=== PATIENT | female | born 1995 | race Caucasian/White ===

== ENCOUNTER 2021-06-21 21:50 | Emergency (ER) | payer SELFPAY ==
[2021-06-21 22:01] VITALS: BP 125/69; PULSE 87; RESP 18; TEMP 37.3; O2SAT 99; BMI 25.8
--- NOTE | 2021-06-21 22:20 | ED_ITS ---
HPI - Back Pain/Injury General Chief Complaint: Back Pain/Injury Stated Complaint: BAD ABD PAIN BACK PAIN Time Seen by Provider: 06/21/21 22:07 Source: patient Limitations: no limitations History of Present Illness HPI Narrative: Patient is an otherwise healthy 25-year-old female here for evaluation of several days of lower abdominal pain, lower back pain, she took an ibuprofen yesterday. She did state that last week she felt a lump in her left inguinal/groin area that has since improved/resolved. No vomiting. Has not tried anything for symptoms prior to arrival. Related Data Home Medications Medication Instructions Recorded Confirmed naproxen sodium 220 mg capsule #0 10/20/16 02/26/21 (Aleve) Previous Rx's Medication Instructions Recorded albuterol sulfate 90 mcg/actuation 2 puff INHALATION Q6H PRN #18 g 02/26/21 aerosol inhaler (ProAir HFA) dextroamphetamine-amphetamine ER 10 mg PO DAILY #14 cap 02/26/21 10 mg 24hr capsule,extend release (Adderall XR) dextroamphetamine-amphetamine ER 20 mg PO DAILY #90 cap 02/26/21 20 mg 24hr capsule,extend release (Adderall XR) fluticasone 250 mcg-salmeterol 50 1 inh INHALATION BID #60 ea 02/26/21 mcg/dose blistr powdr for inhalation (Advair Diskus) Allergies Allergy/AdvReac Type Severity Reaction Status Date / Time No Known Drug Allergies Allergy Verified 06/21/21 22:05 Review of Systems Constitutional Comments: No fevers Cardiovascular Cardiovascular: Reports system reviewed and no additional complaints, except as documented Respiratory Respiratory: Reports system reviewed and no additional complaints, except as documented Gastrointestinal Gastrointestinal: Reports as per HPI Genitourinary Genitourinary: Reports system reviewed and no additional complaints, except as documented Musculoskeletal Musculoskeletal: Reports system reviewed and no additional complaints, except as documented Integumentary/Breasts Skin/Breast: Reports system reviewed and no additional complaints, except as documented Neurologic Neurologic: Reports system reviewed and no additional complaints, except as documented Hematologic/Lymphatic On Anticoagulants: No Patient History Medical History ADD (attention deficit disorder) Anxiety (~2019) Asthma (~2000) Depression (~2017) Family history of Shannan thyroiditis Fractures Headache (~2018) Hearing loss Kidney stones Seasonal allergic rhinitis Seizures (~2009) Surgical History (Updated 04/10/21 @ 22:41 by Leanna Jaffe) Anesthesia Disorder of kidney and ureter (~1994) Family History (Updated 04/10/21 @ 22:44 by Leanna Jaffe) Mother Hypertension Shannan's disease Grandfather Alzheimer's disease Grandmother Skin cancer Grandfather Diabetes mellitus Social History Smoking Status: Current some day smoker Smoking Status: Current some day smoker tobacco type: cigarettes alcohol intake frequency: a few times a week Substance Use Type: marijuana Exam Initial Vital Signs Initial Vital Signs: Vital Signs Temperature 99.1 F 06/21/21 22:01 Pulse Rate 87 06/21/21 22:01 Respiratory Rate 18 06/21/21 22:01 Blood Pressure 125/69 06/21/21 22:01 Pulse Oximetry 99 06/21/21 22:01 Const General: cooperative, healthy appearing and comfortable HENMT Head: normal to inspection and normocephalic Resp Effort & Inspection: normal respiratory effort Cardio Rate: regular rate GI Inspection: normal to inspection Palpation: soft, No firm, No guarding, No mass and No tender Skin General: no rashes or lesions noted Neuro General: patient alert, patient awake, patient oriented x3 and moves all extremities Extrem General: normal to inspection and capillary refill normal Psych Appearance: grossly normal and well kempt Course Orders Ordered: ED Orders 06/21/21 22:49 Chlamydia Gonorrhea PCR -URINE Stat Vital Signs Vital signs: Vital Signs - 8 hr 06/21/21 22:01 06/22/21 00:46 Temperature 99.1 F Pulse Rate 87 63 Respiratory Rate 18 16 Blood Pressure 125/69 117/56 L Pulse Oximetry 99 99 MDM - Back Pain/Injury Lab Data Attestation: I reviewed the patient's lab results. Labs: Lab Results 06/21/21 Range/Units 22:49 Ur Chlamydia DNA (PCR) Not detected N gonorrhoeae DNA (PCR) Not detected Point of Care Testing Test Results Negative Urine Dip Bedside Urine Glucose Negative Bedside Urine Bilirubin - Negative Bedside Urine Ketone - Negative Urine Specific [place] 1.030 Bedside Urine Occult Blood - Negative Bedside Urine pH 6.0 Bedside Urine Protein - Negative Bedside Urine Urobilinogen - Negative Bedside Urine Nitrite - Negative Bedside Urine Leukocytes - Negative Esterase MDM Narrative Medical decision making narrative: Well-appearing, benign exam, labs unremarkable, low suspicion for appendicitis/ovarian torsion/other intra- abdominal surgical issues. I feel that we can hold on further workup for now. Patient was provided reassurance and instructed that if her symptoms do not improve that she should contact her primary doctor for follow-up. She was given return precautions. She expressed understanding and agreement. Discharge Plan Departure Patient Disposition: Home Clinical Impression: Abdominal pain Instructions: DI for Abdominal Pain-Adult Activity Restrictions/Additional Instructions: Your workup here in the emergency department does not indicate any signs of an infection. Also have a low suspicion for other issues such as appendicitis. I recommend that you contact the health resource is coordinator at [phone]. This individual can help you establish a primary doctor. Return to the emergency department for any new symptoms Prescriptions: No Action naproxen sodium [Aleve] 220 MG capsule Qty: 0 RF: 0 dextroamphetamine-amphetamine [Adderall XR] 10 mg capsule,extended release 24 hr 10 mg PO DAILY Qty: 14 RF: 0 dextroamphetamine-amphetamine [Adderall XR] 20 mg capsule,extended release 24hr 20 mg PO DAILY Qty: 90 RF: 0 fluticasone propion-salmeterol [Advair Diskus] 250-50 mcg/dose blister with device 1 inh inhalation BID Qty: 60 RF: 1 albuterol sulfate [ProAir HFA] 90 mcg/actuation HFA aerosol inhaler 2 puff inhalation Q6H PRN (Reason: shortness of breath or wheezing) Qty: 18 RF: 1 Referrals: John Tiwari DO [Primary Care Provider] -
[2021-06-22 00:20] LABS: Urine N gonorrhoeae NOT DETECTED
[2021-06-22 00:33] LABS: Urine Chlamydia NOT DETECTED
[2021-06-22 00:46] VITALS: BP 117/56; PULSE 63; RESP 16; O2SAT 99
== END 2021-06-22 00:46 | disposition home or self-care (01) ==
PROVIDERS: Emergency Provider Emergency Medicine; PCP Family Medicine
DX: R10.30 Lower abdominal pain, unspecified (principal)
CPT/HCPCS: 81003; 81025; 87491; 87591; 99282

== ENCOUNTER 2021-06-23 13:55 | Emergency (ER) | payer SELFPAY ==
[2021-06-23 14:03] VITALS: BP 104/57; PULSE 82; RESP 15; TEMP 36.4; O2SAT 99; BMI 25.8
[2021-06-23 14:23] LABS: Add Manual Diff / Slide Review NO; Basophils Absolute Auto 0 /uL (0-100); Basophils Percent Auto 0.3 % (0-2); Eosinophils Absolute Auto 100 /uL (0-450); Eosinophils Percent Auto 2.3 % (2-4); Hematocrit 38.9 % (36-46); Hemoglobin 12.6 g/dL (12.0-16.0); Lymphocytes Absolute Auto 900 /uL (1100-4500); Lymphocytes Percent Auto 14.6 % (25-40); Mean Corpuscular HGB Conc 32.5 % (30-36); Mean Corpuscular Hemoglobin 27.6 PG (26-34); Monocytes Absolute Auto 400 /uL (0-900); Monocytes Percent Auto 6.7 % (3-14); Neutrophils Absolute Auto 4800 /uL (1500-7000); Neutrophils Percent Auto 76.1 % (50-75); Platelet Count 298 X10^3/uL (150-400); Red Blood Cell Count 4.58 X10^6/uL (4.0-5.2); Red Cell Distribution Width 12.8 % (11.6-14.8); White Blood Cell Count 6.3 X10^3/uL (4.5-11.0)
[2021-06-23 14:35] LABS: Alanine Aminotransferase 15 IU/L (<35); Albumin 4.3 g/dL (3.5-5.0); Albumin Globulin Ratio 1.4 (1.0-2.8); Alkaline Phosphatase 50 U/L (38-126); Aspartate Aminotransferase 26 IU/L (14-36); BUN Creatinine Ratio 25.4 (6-22); Bilirubin Total 0.3 mg/dL (0.2-1.3); Blood Urea Nitrogen 18 mg/dL (7-17); Calcium 9.2 mg/dL (8.4-10.2); Carbon Dioxide 23 mmol/L (22-32); Chloride 109 mmol/L (98-107); Estimated Glomerular Filt Rate > 60.0 mL/min (>60); Globulin 3.1 g/dL (1.7-4.1); Glucose 116 mg/dL (70-100); HEMOLYSIS < 15 (0-50); Lipase 58 U/L (23-300); Potassium 4.4 mmol/L (3.4-5.1); Sodium 139 mmol/L (137-145); Total Protein 7.4 g/dL (6.3-8.2)
--- NOTE | 2021-06-23 19:13 | ED.ABDPAIN ---
HPI - Abdominal Pain General Chief Complaint: Abdominal Pain Stated Complaint: ABD/BACK PAIN, NAUSEA, LOOSE STOOLS Time Seen by Provider: 06/23/21 18:02 Source: patient Mode of arrival: Ambulatory Limitations: no limitations History of Present Illness HPI narrative: Patient here with mother. Started 1 week ago with lower back pain. Also low abdominal pain. Urinalysis done here earlier this week and negative. However today started with numerous watery diarrhea with nausea. No fever. No cough cold congestion. No sick contacts. Denies . LMP 3 weeks ago. Had 1st COVID shot last week however low back pain and low abdominal pain started before this. History of multiple UTIs as a child. Related Data Home Medications Medication Instructions Recorded Confirmed naproxen sodium 220 mg capsule #0 10/20/16 06/24/21 (Aleve) Previous Rx's Medication Instructions Recorded albuterol sulfate 90 mcg/actuation 2 puff INHALATION Q6H PRN #18 g 02/26/21 aerosol inhaler (ProAir HFA) dextroamphetamine-amphetamine ER 20 mg PO DAILY #90 cap 02/26/21 20 mg 24hr capsule,extend release (Adderall XR) fluticasone 250 mcg-salmeterol 50 1 inh INHALATION BID #60 ea 02/26/21 mcg/dose blistr powdr for inhalation (Advair Diskus) ondansetron 4 mg disintegrating 4 mg PO Q8H PRN #10 tab 06/23/21 tablet Allergies Allergy/AdvReac Type Severity Reaction Status Date / Time No Known Drug Allergies Allergy Verified 06/23/21 14:03 Review of Systems Review of Systems Narrative: GENERAL: Denies chills, fatigue, malaise, fever, sweats. HEENT: Denies sinus pain, ear pain, sore throat RESPIRATORY: Denies dyspnea, cough CARDIOVASCULAR: Denies chest pain, palpitations GASTROINTESTINAL: Complaint nausea, denied vomiting, complains abdominal pain : Denies dysuria, frequency, hematuria MUSCULOSKELETAL: denies muscle or bony pain, complains of low back pain SKIN: Denies rash, skin lesions NEUROLOGIC: Denies weakness, numbness Patient History Medical History ADD (attention deficit disorder) Anxiety (~2019) Asthma (~2000) Chronic urinary tract infection Depression (~2017) Family history of Shannan thyroiditis Fractures Headache (~2018) Hearing loss Kidney stones Seasonal allergic rhinitis Seizures (~2009) Surgical History Anesthesia Disorder of kidney and ureter (~1994) Family History Mother Hypertension Shannan's disease Grandfather Alzheimer's disease Grandmother Skin cancer Grandfather Diabetes mellitus Social History Smoking Status: Current some day smoker Smoking Status: Current some day smoker tobacco type: cigarettes alcohol intake frequency: holidays/special occasions only Substance Use Type: marijuana Exam Narrative Exam Narrative: GENERAL: in no distress, not toxic not dyspneic HEAD: Normocephalic. EYES: Pupils equal round No scleral icterus. No injection no discharge ENT: Mucous membranes moist. NECK: Trachea midline. CARDIOVASCULAR: Regular rate and rhythm without murmurs RESPIRATORY: Clear to auscultation. Breath sounds equal bilaterally. No wheezes, rales, or rhonchi. GASTROINTESTINAL: Abdomen soft, non-tender EXTREMITIES: No gross deformities. BACK: No flank tenderness. NEURO: AOx4. SKIN: Warm and dry PSYCH: Not anxious, is cooperative Initial Vital Signs Initial Vital Signs: Vital Signs Temperature 97.6 F 06/23/21 14:03 Pulse Rate 82 06/23/21 14:03 Respiratory Rate 15 06/23/21 14:03 Blood Pressure 104/57 L 06/23/21 14:03 Pulse Oximetry 99 06/23/21 14:03 Course Course Course Narrative: No new issues during her stay. Orders Ordered: Discontinued Medications Hydrocodone Bitart/Acetaminophen (Hydrocodone/Acet 5/325 Tablet) 1 tab PO NOW ONE Stop: 06/23/21 23:40 Last Admin: 06/24/21 00:03 Dose: 1 tab Documented by: BLAYNE Sodium Chloride (Normal Saline 0.9%) 1,000 mls @ 1,000 mls/hr IV BOLUS ONE Stop: 06/23/21 20:11 Last Infusion: 06/23/21 21:07 Dose: 0 mls/hr Documented by: Admin: 06/23/21 19:18 Dose: 1,000 mls/hr Documented by: PATRICIA Ketorolac Tromethamine (Ketorolac 30 Mg/Ml Vial) 15 mg IV NOW ONE Stop: 06/23/21 23:40 Last Admin: 06/24/21 00:03 Dose: 15 mg Documented by: BLAYNE Ondansetron HCl (Ondansetron 4 Mg/2 Ml Inj) 4 mg IV NOW ONE Stop: 06/23/21 19:13 Last Admin: 06/23/21 19:18 Dose: 4 mg Documented by: PATRICIA Reevaluation(s) Reevaluation #1: Updated patient and mother results of CT scan. Patient does not want a pelvic exam but does want pelvic ultrasound Time: 21:59 Reevaluation #2: Reviewed results with patient and mother. Agree with treatment plan and follow-up. They did request pain medication as [id number] medications has not helped. No prior history problem with substance abuse Time: 23:35 Vital Signs Vital signs: Vital Signs - 8 hr 06/23/21 20:51 06/23/21 20:52 06/23/21 21:00 Pulse Rate 78 66 63 Blood Pressure 106/61 108/62 Pulse Oximetry 100 100 100 06/23/21 21:30 06/23/21 22:00 Pulse Rate 66 64 Blood Pressure 108/65 113/68 Pulse Oximetry 100 100 MDM - Abdominal Pain Differential Diagnosis Differential diagnosis: Likely abdominal pain, acute appendicitis, calculus of kidney, constipation, diverticulitis and endometriosis Lab Data Result diagrams: 06/23/21 14:12 06/23/21 14:12 Labs: Lab Results 06/23/21 06/23/21 06/23/21 Range/Units 14:12 14:12 19:20 WBC 6.3 (4.5-11.0) X10^3/uL RBC 4.58 (4.0-5.2) X10^6/uL Hgb 12.6 (12.0-16.0) g/dL Hct 38.9 (36-46) % MCV 85.0 (80-100) fL MCH 27.6 (26-34) PG MCHC 32.5 (30-36) % RDW 12.8 (11.6-14.8) % Plt Count 298 (150-400) X10^3/uL Neut % (Auto) 76.1 H (50-75) % Lymph % (Auto) 14.6 L (25-40) % [place] % (Auto) 6.7 (3-14) % Eos % (Auto) 2.3 (2-4) % Baso % (Auto) 0.3 (0-2) % Neut # (Auto) 4800 (8329-8647) /uL Lymph # (Auto) 900 L (6586-3677) /uL [place] # (Auto) 400 (0-900) /uL Eos # (Auto) 100 (0-450) /uL Baso # (Auto) 0 (0-100) /uL Sodium 139 (137-145) mmol/L Potassium 4.4 (3.4-5.1) mmol/L Chloride 109 H (98-107) mmol/L Carbon Dioxide 23 (22-32) mmol/L BUN 18 H (7-17) mg/dL Creatinine 0.71 (0.52-1.04) mg/dL Estimated GFR > 60.0 (>60) mL/min BUN/Creatinine Ratio 25.4 H (6-22) Glucose 116 H (70-100) mg/dL Calcium 9.2 (8.4-10.2) mg/dL Total Bilirubin 0.3 (0.2-1.3) mg/dL AST 26 (14-36) IU/L ALT 15 (<35) IU/L Alkaline Phosphatase 50 (38-126) U/L Total Protein 7.4 (6.3-8.2) g/dL Albumin 4.3 (3.5-5.0) g/dL Globulin 3.1 (1.7-4.1) g/dL Albumin/Globulin Ratio 1.4 (1.0-2.8) Lipase 58 (23-300) U/L Urine RBC (0-5/HPF) Urine WBC (0-5/HPF) Ur Squamous Epith Cells (0-5/HPF) Amorphous Sediment Urine Bacteria (None) Urine Mucus (Negative) Ur Culture Indicated? Chlamy pneumoniae PCR Not detected (Not Detect) Adenovirus (PCR) Not detected (Not Detect) B. pertussis DNA (PCR) Not detected (Not Detecte) B.parapertussis DNA PCR Not detected (Not Detecte) Coronavirus OC43 (PCR) Not detected (Not Detect) Coronavirus HKU1 (PCR) Not detected (Not Detect) Coronavirus 229E (PCR) Not detected (Not Detect) SARS-CoV-2 (PCR) Not detected (Not Detecte) Coronavirus NL63 (PCR) Not detected (Not Detect) Human Metapneumovir PCR Not detected (Not Detect) Influenza Type A (PCR) Not detected (Not Detect) Influenza Type B (PCR) Not detected (Not Detect) M. pneumoniae (PCR) Not detected (Not Detect) Parainfluenza 1 (PCR) Not detected (Not Detect) Parainfluenza 2 (PCR) Not detected (Not Detect) Parainfluenza 3 (PCR) Not detected (Not Detect) Parainfluenza 4 (PCR) Not detected (Not Detect) RSV (PCR) Not detected (Not Detect) Entero/Rhino (PCR) Not detected (Not Detect) 06/23/21 Range/Units 19:20 WBC (4.5-11.0) X10^3/uL RBC (4.0-5.2) X10^6/uL Hgb (12.0-16.0) g/dL Hct (36-46) % MCV (80-100) fL MCH (26-34) PG MCHC (30-36) % RDW (11.6-14.8) % Plt Count (150-400) X10^3/uL Neut % (Auto) (50-75) % Lymph % (Auto) (25-40) % [place] % (Auto) (3-14) % Eos % (Auto) (2-4) % Baso % (Auto) (0-2) % Neut # (Auto) (7532-4768) /uL Lymph # (Auto) (9056-3545) /uL [place] # (Auto) (0-900) /uL Eos # (Auto) (0-450) /uL Baso # (Auto) (0-100) /uL Sodium (137-145) mmol/L Potassium (3.4-5.1) mmol/L Chloride (98-107) mmol/L Carbon Dioxide (22-32) mmol/L BUN (7-17) mg/dL Creatinine (0.52-1.04) mg/dL Estimated GFR (>60) mL/min BUN/Creatinine Ratio (6-22) Glucose (70-100) mg/dL Calcium (8.4-10.2) mg/dL Total Bilirubin (0.2-1.3) mg/dL AST (14-36) IU/L ALT (<35) IU/L Alkaline Phosphatase (38-126) U/L Total Protein (6.3-8.2) g/dL Albumin (3.5-5.0) g/dL Globulin (1.7-4.1) g/dL Albumin/Globulin Ratio (1.0-2.8) Lipase (23-300) U/L Urine RBC 0-1/hpf (0-5/HPF) Urine WBC 1-5/hpf (0-5/HPF) Ur Squamous Epith Cells 1-5 /hpf (0-5/HPF) Amorphous Sediment 1+ Urine Bacteria Occasional (0-1) (None) Urine Mucus 1+ H (Negative) Ur Culture Indicated? Cult not indicated Chlamy pneumoniae PCR (Not Detect) Adenovirus (PCR) (Not Detect) B. pertussis DNA (PCR) (Not Detecte) B.parapertussis DNA PCR (Not Detecte) Coronavirus OC43 (PCR) (Not Detect) Coronavirus HKU1 (PCR) (Not Detect) Coronavirus 229E (PCR) (Not Detect) SARS-CoV-2 (PCR) (Not Detecte) Coronavirus NL63 (PCR) (Not Detect) Human Metapneumovir PCR (Not Detect) Influenza Type A (PCR) (Not Detect) Influenza Type B (PCR) (Not Detect) M. pneumoniae (PCR) (Not Detect) Parainfluenza 1 (PCR) (Not Detect) Parainfluenza 2 (PCR) (Not Detect) Parainfluenza 3 (PCR) (Not Detect) Parainfluenza 4 (PCR) (Not Detect) RSV (PCR) (Not Detect) Entero/Rhino (PCR) (Not Detect) Point of care testing: Point of Care Testing Test Results Negative Urine Dip Bedside Urine Glucose Negative Bedside Urine Bilirubin - Negative Bedside Urine Ketone - Negative Urine Specific [place] 1.030 Bedside Urine Occult Blood + Bedside Urine pH 5.5 Bedside Urine Protein - Negative Bedside Urine Urobilinogen - Negative Bedside Urine Nitrite - Negative Bedside Urine Leukocytes - Negative Esterase Imaging Data CT scan - abdomen/pelvis: Radiologist's Impression: [address] [id number] Scan ReportSigned Patient: Jaki Moses#: [id number]: 1995Acct:[id number]/Sex: 25 / FDate of Service: 06/23/21Loc: EDAccession Number: [id number] Procedure: CT abdomen pelvis w con Ordering Provider: Holden Winter MD PROCEDURE: CT ABDOMEN PELVIS W CON INDICATIONS: IV contrast only/lower abdominal pain TECHNIQUE: After the administration of intravenous contrast, axial sections acquired from the lung bases to the pubic symphysis. Coronal and sagittal reformats were performed. For radiation dose reduction, the following was used: automated exposure control, adjustment of mA and/or kV according to patient size. COMPARISON: None. FINDINGS: Image quality: Excellent. Lung bases: Lung bases are clear. Heart size is normal. Solid organs: Liver: The liver has no mass or intrahepatic biliary ductal dilatation. The portal vein and hepatic veins are patent. Biliary: The gallbladder has no gallstones, pericholecystic fluid, gallbladder wall thickening, or surrounding inflammatory change. Pancreas: The pancreas has no mass or ductal dilatation. There is no surrounding inflammation. Spleen: Normal size. There are no masses. Adrenals: No hypertrophy or nodules. Kidneys: No obstructive calculus or hydronephrosis. There is cortical thinning of the upper pole of the left kidney. No solid mass. No cystic mass. Peritoneum and bowel: The distal esophagus and stomach are normal. The small bowel has a normal caliber and appearance. The terminal ileum is normal. The large bowel has a normal caliber and appearance. The appendix is not definitively visualized; however there are no secondary CT findings to suggest acute appendicitis. No free fluid or air. Nodes and vessels: No retroperitoneal or mesenteric adenopathy by size criteria. Aorta and inferior vena cava are normal in size. Miscellaneous: No abdominal wall mass or hernia. PELVIS: Genitourinary: The bladder has no wall thickening or mass. No bladder calcifications. 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 The cervix appears enlarged and irregular. Miscellaneous: No inguinal hernias or adenopathy. Bones: No suspicious bony lesions. No vertebral body compression fractures. IMPRESSION: 1. Enlarged irregular cervix. Recommend correlation with pelvic exam and consider pelvic ultrasound. 2. 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 3. The appendix is not definitively identified, and thus appendicitis cannot be completely ruled out, however there are no secondary CT findings to suggest acute appendicitis. Please correlate with exam and follow up appropriately. Dictated by: Orion Ortega M.D. on 06/23/2021 at 21:07 Approved by: Orion Ortega M.D. on 06/23/2021 at 21:18 US - HOT POND OPERATOR: Radiologist's Impression: Pelvic ultrasound read by overnight radiologist no acute disease in the pelvis. Right ovary and left ovary arterial waveforms are noted in both ovaries MDM Narrative Medical decision making narrative: Appropriate for discharge home. Exam and laboratory studies and imaging reassuring. Return precautions reviewed with patient and mother. Agree with treatment plan and follow-up with primary care/shop supervisor. Discharge Plan Departure Patient Disposition: Home Clinical Impression: Pelvic pain Instructions: DI for Pelvic Pain Activity Restrictions/Additional Instructions: No driving or operating machinery tonight. See family doctor within a week for recheck or see your OBGYN doctor for continued evaluation of your pelvic pain. Return if worse or any questions or concerns Prescriptions: New ondansetron 4 mg tablet,disintegrating 4 mg PO Q8H PRN (Reason: nausea and vomiting) Qty: 10 RF: 0 No Action naproxen sodium [Aleve] 220 MG capsule Qty: 0 RF: 0 dextroamphetamine-amphetamine [Adderall XR] 20 mg capsule,extended release 24hr 20 mg PO DAILY Qty: 90 RF: 0 fluticasone propion-salmeterol [Advair Diskus] 250-50 mcg/dose blister with device 1 inh inhalation BID Qty: 60 RF: 1 albuterol sulfate [ProAir HFA] 90 mcg/actuation HFA aerosol inhaler 2 puff inhalation Q6H PRN (Reason: shortness of breath or wheezing) Qty: 18 RF: 1 Referrals: John Tiwari, [Primary Care Provider] -
[2021-06-23] MEDS: ONDANSETRON 4 MG/2 ML INJ IV (19:18)
[2021-06-23] MEDS: SODIUM CHLORIDE 0.9% 1,000 ML 1000 ML IV (19:18)
[2021-06-23 19:45] LABS: RBC Urine 0-1/HPF (0-5/HPF); Squamous Epithelial Cell Urine 1-5 /HPF (0-5/HPF); WBC Urine 1-5/HPF (0-5/HPF)
[2021-06-23 19:46] LABS: Amorphous Sediment Urine 1+; Bacteria Urine Occasional (0-1); Culture Indicated Urine Cult Not Indicated; Mucus Urine 1+ (Negative)
--- NOTE | 2021-06-23 19:58 | DI.CT.S_ITS ---
PROCEDURE: CT ABDOMEN PELVIS W CON INDICATIONS: IV contrast only/lower abdominal pain TECHNIQUE: After the administration of intravenous contrast, axial sections acquired from the lung bases to the pubic symphysis. Coronal and sagittal reformats were performed. For radiation dose reduction, the following was used: automated exposure control, adjustment of mA and/or kV according to patient size. COMPARISON: None. FINDINGS: Image quality: Excellent. Lung bases: Lung bases are clear. Heart size is normal. Solid organs: Liver: The liver has no mass or intrahepatic biliary ductal dilatation. The portal vein and hepatic veins are patent. Biliary: The gallbladder has no gallstones, pericholecystic fluid, gallbladder wall thickening, or surrounding inflammatory change. Pancreas: The pancreas has no mass or ductal dilatation. There is no surrounding inflammation. Spleen: Normal size. There are no masses. Adrenals: No hypertrophy or nodules. Kidneys: No obstructive calculus or hydronephrosis. There is cortical thinning of the upper pole of the left kidney. No solid mass. No cystic mass. Peritoneum and bowel: The distal esophagus and stomach are normal. The small bowel has a normal caliber and appearance. The terminal ileum is normal. The large bowel has a normal caliber and appearance. The appendix is not definitively visualized; however there are no secondary CT findings to suggest acute appendicitis. No free fluid or air. Nodes and vessels: No retroperitoneal or mesenteric adenopathy by size criteria. Aorta and inferior vena cava are normal in size. Miscellaneous: No abdominal wall mass or hernia. PELVIS: Genitourinary: The bladder has no wall thickening or mass. No bladder calcifications. 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 The cervix appears enlarged and irregular. Miscellaneous: No inguinal hernias or adenopathy. Bones: No suspicious bony lesions. No vertebral body compression fractures. IMPRESSION: 1. Enlarged irregular cervix. Recommend correlation with pelvic exam and consider pelvic ultrasound. 2. 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 3. The appendix is not definitively identified, and thus appendicitis cannot be completely ruled out, however there are no secondary CT findings to suggest acute appendicitis. Please correlate with exam and follow up appropriately. Dictated by: Orion Ortega M.D. on 06/23/2021 at 21:07 Approved by: Orion Ortega M.D. on 06/23/2021 at 21:18
[2021-06-23 20:20] LABS: Adenovirus Not Detected (Not Detect); B. parapertussis Not Detected (Not Detecte); Bordetella pertussis Not Detected (Not Detecte); Chlamydophila pneumoniae Not Detected (Not Detect); Coronavirus 229E Not Detected (Not Detect); Coronavirus HKU1 Not Detected (Not Detect); Coronavirus NL 63 Not Detected (Not Detect); Coronavirus OC43 Not Detected (Not Detect); Human Metapneumovirus Not Detected (Not Detect); Human Rhinovirus/Enterovirus Not Detected (Not Detect); Influenza A Not Detected (Not Detect); Influenza B Not Detected (Not Detect); Mycoplasma pneumoniae Not Detected (Not Detect); Parainfluenza Virus 1 Not Detected (Not Detect); Parainfluenza Virus 2 Not Detected (Not Detect); Parainfluenza Virus 3 Not Detected (Not Detect); Parainfluenza Virus 4 Not Detected (Not Detect); Respiratory Syncytial Virus Not Detected (Not Detect); SARS- CoV-2 Not Detected (Not Detecte)
[2021-06-23 20:51] VITALS: PULSE 78; O2SAT 100
[2021-06-23 20:52] VITALS: BP 106/61; PULSE 66; O2SAT 100
[2021-06-23 21:00] VITALS: BP 108/62; PULSE 63; O2SAT 100
[2021-06-23 21:30] VITALS: BP 108/65; PULSE 66; O2SAT 100
--- NOTE | 2021-06-23 21:57 | DI.US.S_ITS ---
PROCEDURE: US PELVIC COMPLETE INDICATIONS: CRAMPING TECHNIQUE: Real-time scanning was performed of the pelvic organs, with image documentation. Additional endovaginal scanning was necessary due to incomplete visualization of the adnexal and endometrial structures by transabdominal scanning. COMPARISON: None. FINDINGS: Uterus: Uterus is normal in size at 6.6 x 2.9 x 4 point cm. Bicornuate endometrium noted. The endometrium measures left 5.1 mm and right 5.7 in combined thickness. Uterus has normal and homogeneous echotexture. Ovaries: Right ovary measures 2.6 x 1.7 x 3.5 centimeters. Left ovary measures 2.9 x 1.9 x 1.9 centimeters. The ovaries are sonographically normal. Doppler evaluation demonstrates normal vascular flow to the ovaries. Other: No pathologic free abdominal or pelvic fluid. IMPRESSION: 1. No acute disease process. 2. No Doppler evidence of ovarian torsion. Please note ultrasound cannot exclude intermittent ovarian torsion. Dictated by: Rere Fernandez MD, PhD on 06/24/2021 at 8:38 Approved by: Rere Fernandez MD, PhD on 06/24/2021 at 8:40
[2021-06-23 22:00] VITALS: BP 113/68; PULSE 64; O2SAT 100
[2021-06-24] MEDS: HYDROCODONE/ACET 5/325 TABLET 1 TAB PO (00:03)
[2021-06-24] MEDS: KETOROLAC 30 MG/ML VIAL 15 MG IV (00:03)
== END 2021-06-24 00:16 | disposition home or self-care (01) ==
PROVIDERS: Emergency Medicine; Emergency Provider Emergency Medicine; PCP Family Medicine
DX: R10.2 Pelvic and perineal pain (principal); R19.7 Diarrhea, unspecified; R11.0 Nausea
CPT/HCPCS: 36415; 74177; 76830; 76856; 80053; 81003; 81015; 81025; 83690; 85025; 87633; 96361; 96374; 96375; 99284; 99285; J1885; J2405; Q9967

== ENCOUNTER → 2021-08-25 08:38 | Outpatient (CLI) | payer SELFPAY ==
[2021-08-25 09:06] LABS: Add Manual Diff / Slide Review NO; Basophils Absolute Auto 0 /uL (0-100); Basophils Percent Auto 0.6 % (0-2); Eosinophils Absolute Auto 300 /uL (0-450); Eosinophils Percent Auto 6.1 % (2-4); Hematocrit 38.4 % (36-46); Hemoglobin 12.6 g/dL (12.0-16.0); Lymphocytes Absolute Auto 1400 /uL (1100-4500); Lymphocytes Percent Auto 24.8 % (25-40); Mean Corpuscular HGB Conc 32.9 % (30-36); Mean Corpuscular Hemoglobin 27.7 PG (26-34); Mean Corpuscular Volume 84.3 fL (80-100); Monocytes Absolute Auto 500 /uL (0-900); Monocytes Percent Auto 8.6 % (3-14); Neutrophils Absolute Auto 3300 /uL (1500-7000); Neutrophils Percent Auto 59.9 % (50-75); Platelet Count 271 X10^3/uL (150-400); Red Blood Cell Count 4.56 X10^6/uL (4.0-5.2); Red Cell Distribution Width 13.3 % (11.6-14.8); White Blood Cell Count 5.6 X10^3/uL (4.5-11.0)
[2021-08-25 09:58] LABS: Thyroid Stimulating Hormone 2.39 uIU/mL (0.47-4.68)
== END ==
PROVIDERS: PCP Family Medicine; Referring Provider Family Medicine; Visit Provider Family Medicine
DX: R53.83 Other fatigue (principal); Z83.49 Family history of other endocrine, nutritional and metabolic diseases
CPT/HCPCS: 36415; 84443; 85025

== ENCOUNTER → 2023-01-18 10:53 | Outpatient (CLI) | payer OTHER, SELFPAY ==
[2023-01-18 12:44] LABS: Add Manual Diff / Slide Review NO; Basophils Absolute Auto 0 /uL (0-100); Basophils Percent Auto 0.4 % (0-2); Eosinophils Absolute Auto 300 /uL (0-450); Eosinophils Percent Auto 4.8 % (2-4); Hematocrit 38.3 % (36-46); Hemoglobin 12.5 g/dL (12.0-16.0); Lymphocytes Absolute Auto 1200 /uL (1100-4500); Lymphocytes Percent Auto 17.4 % (25-40); Mean Corpuscular HGB Conc 32.7 % (30-36); Mean Corpuscular Hemoglobin 27.7 PG (26-34); Mean Corpuscular Volume 84.8 fL (80-100); Monocytes Absolute Auto 400 /uL (0-900); Monocytes Percent Auto 6.6 % (3-14); Neutrophils Absolute Auto 4700 /uL (1500-7000); Neutrophils Percent Auto 70.8 % (50-75); Platelet Count 290 X10^3/uL (150-400); Red Blood Cell Count 4.52 X10^6/uL (4.0-5.2); Red Cell Distribution Width 13.2 % (11.6-14.8); White Blood Cell Count 6.6 X10^3/uL (4.5-11.0)
[2023-01-18 12:53] LABS: Hemoglobin A1C% w Est Avg Glu 5.3 % (4.0-6.0)
[2023-01-18 13:35] LABS: Alanine Aminotransferase 15 IU/L (<35); Albumin 4.2 g/dL (3.5-5.0); Albumin Globulin Ratio 1.4 (1.0-2.8); Alkaline Phosphatase 46 U/L (38-126); Aspartate Aminotransferase 34 IU/L (14-36); BUN Creatinine Ratio 20.7 (6-22); Bilirubin Total 0.5 mg/dL (0.2-1.3); Blood Urea Nitrogen 17 mg/dL (7-17); Calcium 9.1 mg/dL (8.4-10.2); Carbon Dioxide 28 mmol/L (22-32); Chloride 102 mmol/L (98-107); Estimated Glomerular Filt Rate > 60 mL/min (>60); Globulin 3.1 g/dL (1.7-4.1); Glucose 80 mg/dL (70-100); HEMOLYSIS < 15 (0-50); Potassium 4.2 mmol/L (3.4-5.1); Sodium 138 mmol/L (137-145); Total Protein 7.3 g/dL (6.3-8.2)
[2023-01-18 14:04] LABS: TSH w/ Reflex to FT4 1.49 uIU/mL (0.47-4.68)
[2023-01-18 14:20] LABS: Vitamin B12 363 pg/mL (239-931)
== END ==
PROVIDERS: PCP Family Medicine; Referring Provider Family Medicine; Visit Provider Family Medicine
DX: Z13.1 Encounter for screening for diabetes mellitus (principal); R53.83 Other fatigue
CPT/HCPCS: 36415; 80053; 82607; 83036; 84443; 85025

== ENCOUNTER → 2023-05-17 09:31 | Outpatient (CLI) | payer OTHER, SELFPAY | PROVIDERS: PCP Family Medicine; Visit Provider Student in an Organized Health Care Education/Training Program | DX: N39.0 Urinary tract infection, site not specified (principal) | CPT/HCPCS: 87077; 87086; 87186 ==

== ENCOUNTER → 2023-07-23 11:02 | Outpatient (CLI) | payer OTHER, MEDICAID, SELFPAY | PROVIDERS: PCP Family Medicine; Visit Provider Nurse Practitioner Family | DX: R10.9 Unspecified abdominal pain (principal) | CPT/HCPCS: 81002; 87086 ==

== ENCOUNTER 2023-07-24 06:45 | Emergency (ER) | payer OTHER, MEDICAID, SELFPAY ==
[2023-07-24 06:59] VITALS: BP 134/76; PULSE 76; RESP 18; TEMP 37.4; O2SAT 100; BMI 25.8
--- NOTE | 2023-07-24 07:10 | ED.BACK ---
HPI - Back Pain/Injury General Chief Complaint: Back Pain/Injury Stated Complaint: Back pain was seen in walkin clinic Time Seen by Provider: 07/24/23 06:57 Source: patient Mode of arrival: Ambulatory History of Present Illness HPI Narrative: Patient is a 27-year-old female is here for evaluation of lower back discomfort. She states she is having some urinary frequency and thought maybe she would a urinary tract infection although she went to the walk-in clinic yesterday and had a urinalysis which was unremarkable. She states yesterday he was somewhat worse to the touch. It is right greater than left. She has had discomfort like this before. She took an oxycodone last evening because of the pain. Related Data Previous Rx's Medication Instructions Recorded albuterol sulfate 90 mcg/actuation 1 puff inhalation Q2-4H PRN 04/22/22 aerosol inhaler shortness of breath or wheezing #1 ea hydroxyzine HCl 25 mg tablet 25 mg PO Q8H PRN panic, anxiety 02/15/23 #30 tabs dextroamphetamine-amphetamine ER 1 cap PO DAILY #30 caps 06/23/23 20 mg 24hr capsule,extend release cyclobenzaprine 10 mg tablet 10 mg PO TID PRN muscle spasm #21 07/24/23 tabs Allergies Allergy/AdvReac Type Severity Reaction Status Date / Time No Known Drug Allergies Allergy Verified 07/23/23 11:04 Review of Systems Constitutional Constitutional: Reports system reviewed and no additional complaints, except as documented Gastrointestinal Gastrointestinal: Reports system reviewed and no additional complaints, except as documented Genitourinary Genitourinary: Reports system reviewed and no additional complaints, except as documented Musculoskeletal Musculoskeletal: Reports system reviewed and no additional complaints, except as documented Integumentary/Breasts Skin/Breast: Reports system reviewed and no additional complaints, except as documented Neurologic Neurologic: Reports system reviewed and no additional complaints, except as documented Patient History Medical History ADD (attention deficit disorder) Anxiety (~2019) Asthma (~2000) Chronic urinary tract infection Depression (~2017) Elevated LFTs Family history of Shannan thyroiditis Fractures Headache (~2018) Hearing loss Insomnia Kidney stones Seasonal allergic rhinitis Seizures (~2009) Surgical History Anesthesia Disorder of kidney and ureter (~1994) Family History Mother Hypertension Shannan's disease Grandfather Alzheimer's disease Grandmother Skin cancer Grandfather Diabetes mellitus Social History Smoking Status: Current some day smoker Smoking Status: Current some day smoker tobacco type: cigarettes alcohol intake frequency: holidays/special occasions only Substance Use Type: marijuana Exam Initial Vital Signs Initial Vital Signs: Vital Signs Temperature 99.4 F 07/24/23 06:59 Pulse Rate 76 07/24/23 06:59 Respiratory Rate 18 07/24/23 06:59 Blood Pressure 134/76 07/24/23 06:59 Pulse Oximetry 100 07/24/23 06:59 Oxygen Delivery Method Room Air 07/24/23 06:59 HENMT Head: normal to inspection and normocephalic Resp Auscultation: clear to auscultation bilaterally Cardio Rate: regular rate Back/Spine/Pelvis Other: Some tenderness to palpation right-sided lower back and SI joint. Minor tenderness left-sided low back pain Skin General: no rashes or lesions noted Neuro General: patient alert, patient awake and moves all extremities Course Orders Ordered: ED Orders 07/24/23 07:45 Basic Metabolic Panel Stat Complete Blood Count AUTO DIFF Stat Vital Signs Vital signs: Vital Signs - 8 hr 07/24/23 06:59 Temperature 99.4 F Pulse Rate 76 Respiratory Rate 18 Blood Pressure 134/76 Pulse Oximetry 100 Oxygen Delivery Method Room Air MDM - Back Pain/Injury Medical Records Attestation: I reviewed the patient's medical records. Lab Data Attestation: I reviewed the patient's lab results. 07/24/23 07:45 07/24/23 07:45 Labs: Lab Results 07/24/23 07/24/23 Range/Units 07:45 07:45 WBC 5.4 (4.5-11.0) X10^3/uL RBC 4.10 (4.0-5.2) X10^6/uL Hgb 11.5 L (12.0-16.0) g/dL Hct 34.1 L (36-46) % MCV 83.0 (80-100) fL MCH 28.0 (26-34) PG MCHC 33.7 (30-36) % RDW 13.1 (11.6-14.8) % Plt Count 240 (150-400) X10^3/uL Neut % (Auto) 52.1 (50-75) % Lymph % (Auto) 32.7 (25-40) % [place] % (Auto) 8.6 (3-14) % Eos % (Auto) 5.9 H (2-4) % Baso % (Auto) 0.7 (0-2) % Neut # (Auto) 2800 (1839-9737) /uL Lymph # (Auto) 1800 (2989-9106) /uL [place] # (Auto) 500 (0-900) /uL Eos # (Auto) 300 (0-450) /uL Baso # (Auto) 0 (0-100) /uL Sodium 136 L (137-145) mmol/L Potassium 4.2 (3.4-5.1) mmol/L Chloride 103 (98-107) mmol/L Carbon Dioxide 28 (22-32) mmol/L BUN 10 (7-17) mg/dL Creatinine 0.80 (0.52-1.04) mg/dL Estimated GFR > 60 (>60) mL/min BUN/Creatinine Ratio 12.5 (6-22) Glucose 98 (70-100) mg/dL Calcium 9.4 (8.4-10.2) mg/dL MDM Narrative Medical decision making narrative: Urinalysis from yesterday was unremarkable. I have low suspicion that this is a kidney infection or urinary tract infection. No trauma. I do suspect musculoskeletal. No indication for radiologic studies today. I discuss this with the patient. She does need to follow-up with her primary care doctor to discuss further treatment such as physical therapy or more advanced imaging. Discharge Plan Departure Patient Disposition: Home Clinical Impression: Strain of lumbar region Instructions: DI for Low Back Pain Activity Restrictions/Additional Instructions: I do recommend you continue to take all of your medications as directed. Also recommend that you contact your primary doctor for follow-up to discuss further pain control, referral to see physical therapy and discussion about the indications for more advanced imaging such as an MRI. Prescriptions: New cyclobenzaprine 10 mg tablet 10 mg PO TID PRN (Reason: muscle spasm) Qty: 21 0RF No Action albuterol sulfate 90 mcg/actuation HFA aerosol inhaler 1 puff inhalation Q2-4H PRN (Reason: shortness of breath or wheezing) Qty: 1 0RF hydroxyzine HCl 25 mg tablet 25 mg PO Q8H PRN (Reason: panic, anxiety) Qty: 30 5RF dextroamphetamine-amphetamine 20 mg capsule,extended release 24hr 1 cap PO DAILY Qty: 30 0RF Referrals: John Tiwari DO [Primary Care Provider] - Stand Alone Forms: Patient Portal/API
[2023-07-24 07:55] LABS: Add Manual Diff / Slide Review NO; Basophils Absolute Auto 0 /uL (0-100); Basophils Percent Auto 0.7 % (0-2); Eosinophils Absolute Auto 300 /uL (0-450); Eosinophils Percent Auto 5.9 % (2-4); Hematocrit 34.1 % (36-46); Hemoglobin 11.5 g/dL (12.0-16.0); Lymphocytes Absolute Auto 1800 /uL (1100-4500); Lymphocytes Percent Auto 32.7 % (25-40); Mean Corpuscular HGB Conc 33.7 % (30-36); Monocytes Absolute Auto 500 /uL (0-900); Monocytes Percent Auto 8.6 % (3-14); Neutrophils Absolute Auto 2800 /uL (1500-7000); Neutrophils Percent Auto 52.1 % (50-75); Platelet Count 240 X10^3/uL (150-400); Red Cell Distribution Width 13.1 % (11.6-14.8); White Blood Cell Count 5.4 X10^3/uL (4.5-11.0)
[2023-07-24 08:08] LABS: BUN Creatinine Ratio 12.5 (6-22); Blood Urea Nitrogen 10 mg/dL (7-17); Calcium 9.4 mg/dL (8.4-10.2); Carbon Dioxide 28 mmol/L (22-32); Chloride 103 mmol/L (98-107); Estimated Glomerular Filt Rate > 60 mL/min (>60); Glucose 98 mg/dL (70-100); HEMOLYSIS < 15 (0-50); Potassium 4.2 mmol/L (3.4-5.1); Sodium 136 mmol/L (137-145)
== END 2023-07-24 08:47 | disposition home or self-care (01) ==
PROVIDERS: Emergency Provider Emergency Medicine; PCP Family Medicine
DX: S39.012A Strain of muscle, fascia and tendon of lower back, initial encounter (principal); X58.XXXA Exposure to other specified factors, initial encounter; Y93.9 Activity, unspecified
CPT/HCPCS: 80048; 85025; 99281; 99283

== ENCOUNTER 2024-09-21 09:02 | Emergency (ER) | payer SELFPAY ==
[2024-09-21] VITALS (14 sets, daily range): BP systolic 85–101; BP diastolic 50–56; PULSE 49–71; RESP 16–18; TEMP 36.9; O2SAT 97–100; BMI 27.2
--- NOTE | 2024-09-21 09:33 | ED.BACK ---
HPI - Back Pain/Injury General Chief Complaint: Back Pain/Injury Stated Complaint: kidney/back pain, poss infection Time Seen by Provider: 09/21/24 09:26 History of Present Illness HPI Narrative: 28-year-old woman with a history of kidney abnormalities with urologic procedures and kidney stones with pyelonephritis in the absence of urinary tract infections. She also notes that she has some minor chronic back pain issues typically treated by her chiropractor. She has been worked up for endometriosis and after her current cycle she has a different prescription for control pills. She is currently on day 2 of her withdrawal bleeding. She presents complaining of right flank pain that seems to radiate across the lower back. She states that this pain feels more like the kidney stones and pyelonephritis issues she had had when she was younger rather than her usual back pain, cramping/endometriosis pain or lower pelvic/abdominal pain. She notes that she will have waves of pain with flashes of warmth due to the severity of the pain that then seem to resolve. Symptoms have been ongoing for 4-5 days, no overt fevers, vaginal discharge beyond withdrawal bleeding, chest pain, palpitations, nausea, vomiting, diarrhea. There has been no trauma to the back. Related Data Previous Rx's Medication Instructions Recorded albuterol sulfate 90 mcg/actuation 1 puff inhalation Q2-4H PRN 04/22/22 aerosol inhaler shortness of breath or wheezing #1 ea dextroamphetamine-amphetamine ER 1 cap PO DAILY #30 caps 12/19/23 20 mg 24hr capsule,extend release Allergies Allergy/AdvReac Type Severity Reaction Status Date / Time No Known Drug Allergies Allergy Verified 08/18/23 08:27 Review of Systems Review of Systems Narrative: Pertinent positive and negative findings as per HPI Patient History Medical History ADD (attention deficit disorder) Anxiety (~2019) Asthma (~2000) Chronic urinary tract infection Depression (~2017) Elevated LFTs Family history of Shannan thyroiditis Fractures Headache (~2018) Hearing loss Insomnia Kidney stones Seasonal allergic rhinitis Seizures (~2009) Surgical History Anesthesia Disorder of kidney and ureter (~1994) Family History Mother Hypertension Shannan's disease Grandfather Alzheimer's disease Grandmother Skin cancer Grandfather Diabetes mellitus Social History Smoking Status: Current some day smoker Smoking Status: Current some day smoker tobacco type: cigarettes alcohol intake frequency: holidays/special occasions only Substance Use Type: marijuana Exam Initial Vital Signs Initial Vital Signs: Vital Signs Temperature 98.4 F 09/21/24 09:10 Pulse Rate 71 09/21/24 09:10 Respiratory Rate 16 09/21/24 09:10 Blood Pressure 101/55 L 09/21/24 09:10 Pulse Oximetry 97 09/21/24 09:10 Oxygen Delivery Method Room Air 09/21/24 09:10 General: Healthy appearing, in no acute distress. Able to give a complete and coherent history. Well-nourished well-developed HEENT: Moist mucous membranes, normal sclera with reactive pupils, Respiratory: Lungs are clear to auscultation, no wheezing no rales no rhonchi. Full and symmetrical air movement Cardiac: Regular rate and rhythm no murmurs no bruits Abdomen: Soft, nontender, no pelvic or suprapubic tenderness, no rebound or guarding, mild right flank pain Skin: Warm and dry, no rashes Neurologic: Grossly neurologically intact with no obvious asymmetries or abnormalities Extremities: No trauma, well perfused Psych: Cooperative, appropriate insight and affect Course Orders Ordered: ED Orders 09/21/24 09:10 Urine Microscopic Stat 09/21/24 09:33 CT kidney ureter bladder (KUB) Stat 09/21/24 10:23 Complete Blood Count AUTO DIFF Stat Comprehensive Metabolic Panel Stat Discontinued Medications Sodium Chloride (Normal Saline 0.9%) 1,000 mls @ 1,000 mls/hr IV BOLUS ONE Stop: 09/21/24 10:32 Last Infusion: 09/21/24 10:32 Dose: Infused Documented By: Admin: 09/21/24 09:53 Dose: 1,000 mls/hr Documented By: JAYNE Ketorolac Tromethamine (Ketorolac 30 Mg/Ml Vial) 15 mg IV NOW ONE Stop: 09/21/24 09:34 Last Admin: 09/21/24 09:52 Dose: 15 mg Documented By: JAYNE Vital Signs Vital signs: Vital Signs - 8 hr 09/21/24 09:10 09/21/24 09:17 09/21/24 09:19 Temperature 98.4 F Pulse Rate 71 69 Respiratory Rate 16 Blood Pressure 101/55 L 97/56 L Pulse Oximetry 97 99 Oxygen Delivery Method Room Air 09/21/24 09:19 09/21/24 09:30 09/21/24 09:59 Temperature Pulse Rate 64 70 Respiratory Rate Blood Pressure 91/54 L Pulse Oximetry 98 100 Oxygen Delivery Method 09/21/24 10:00 09/21/24 10:00 09/21/24 10:30 Temperature Pulse Rate 58 L 55 L Respiratory Rate 18 Blood Pressure 92/50 L Pulse Oximetry 99 100 Oxygen Delivery Method 09/21/24 10:30 09/21/24 11:00 09/21/24 11:00 Temperature Pulse Rate 52 L Respiratory Rate Blood Pressure 94/55 L 88/55 L Pulse Oximetry 100 Oxygen Delivery Method 09/21/24 11:02 09/21/24 11:02 Temperature Pulse Rate 57 L Respiratory Rate Blood Pressure 89/51 L Pulse Oximetry 100 Oxygen Delivery Method MDM - Back Pain/Injury Lab Data 09/21/24 10:23 09/21/24 10:23 Labs: Lab Results 09/21/24 09/21/24 Range/Units 09:10 10:23 WBC 6.4 (4.5-11.0) X10^3/uL RBC 4.26 (4.0-5.2) X10^6/uL Hgb 11.9 L (12.0-16.0) g/dL Hct 36.1 (36-46) % MCV 84.9 (80-100) fL MCH 28.0 (26-34) PG MCHC 33.1 (30-36) % RDW 13.5 (11.6-14.8) % Plt Count 263 (150-400) X10^3/uL Neut % (Auto) 58.2 (50-75) % Lymph % (Auto) 24.9 L (25-40) % [place] % (Auto) 7.2 (3-14) % Eos % (Auto) 9.0 H (2-4) % Baso % (Auto) 0.7 (0-2) % Neut # (Auto) 3700 (1598-2780) /uL Lymph # (Auto) 1600 (1252-4468) /uL [place] # (Auto) 500 (0-900) /uL Eos # (Auto) 600 H (0-450) /uL Baso # (Auto) 0 (0-100) /uL Sodium 138 (137-145) mmol/L Potassium 4.1 (3.4-5.1) mmol/L Chloride 105 (98-107) mmol/L Carbon Dioxide 24 (22-32) mmol/L BUN 17 (7-17) mg/dL Creatinine 0.89 (0.52-1.04) mg/dL Estimated GFR > 60 (>60) mL/min BUN/Creatinine Ratio 19.1 (6-22) Glucose 86 (70-100) mg/dL Calcium 9.2 (8.4-10.2) mg/dL Total Bilirubin 0.3 (0.2-1.3) mg/dL AST 21 (14-36) IU/L ALT 15 (<35) IU/L Alkaline Phosphatase 47 (38-126) U/L Total Protein 6.7 (6.3-8.2) g/dL Albumin 4.2 (3.5-5.0) g/dL Globulin 2.5 (1.7-4.1) g/dL Albumin/Globulin Ratio 1.7 (1.0-2.8) Urine RBC 10-30/hpf H (0-5/HPF) Urine WBC 0-1/hpf (0-5/HPF) Ur Squamous Epith Cells 0-1 /hpf (0-5/HPF) Urine Bacteria None seen (None) Ur Culture Indicated? Cult not indicated Vol Urine Centrifuged 10ml (spun) Point of Care Testing Test Results Negative Urine Dip Bedside Urine Glucose Negative Bedside Urine Bilirubin - Negative Bedside Urine Ketone - Negative Urine Specific [place] 1.025 Bedside Urine Occult Blood +++ Bedside Urine pH 6.0 Bedside Urine Protein - Negative Bedside Urine Urobilinogen - Negative Bedside Urine Nitrite - Negative Bedside Urine Leukocytes - Negative Esterase Imaging Data CT scan - abdomen/pelvis: Radiologist's Impression: PROCEDURE: CT KIDNEY URETER BLADDER (KUB) INDICATIONS: right flank pain TECHNIQUE: Axial sections were acquired from the lung bases to the pubic symphysis. Coronal and sagittal reformats were performed. For radiation dose reduction, the following was used: automated exposure control, adjustment of mA and/or kV according to patient size. COMPARISON: [facility], CT, CT ABDOMEN PELVIS W CON, 06/23/2021, 20:00. [facility], US, US ABDOMEN COMPLETE, 05/17/2024, 7:28. FINDINGS: Image quality: Diagnostic. Lower Chest: No significant findings. URINARY: Right Kidney: No stones or hydronephrosis. Right Ureter: No hydroureter. Left Kidney: No stones or hydronephrosis. Left Ureter: No hydroureter. Bladder: Normal wall thickness. No stones. ABDOMEN: Liver: No contour-deforming solid mass. Gallbladder: No radiopaque gallstones or wall thickening. Biliary ducts: No biliary dilation. Pancreas: No ductal dilation. Spleen: Size is within normal limits. Adrenal Glands: No adrenal nodules. Stomach and Bowel: Normal colonic caliber, without significant wall thickening. There is a moderate volume of stool seen within the colon. No dilated loops of small bowel are seen. Peritoneum: No abnormal intraperitoneal fluid. No free air. Ventral Wall: No hernia. Abdominal Nodes: No enlarged retroperitoneal or mesenteric lymph nodes. Vessels: Aorta and inferior vena cava are normal in size. PELVIS: Pelvic Organs: No adnexal masses are seen on either side. Pelvic Nodes: Unremarkable. Miscellaneous: No inguinal hernias are seen. Bones: Unremarkable. IMPRESSION: No obstructing stones or hydronephrosis. There is a moderate amount of stool seen within the colon. Please correlate with an underlying history of constipation. Dictated by: Ike Woods M.D. on 09/21/2024 at 9:09 MDM Narrative Medical decision making narrative: CC: Right flank/back pain Complicating co-morbidities: History of prior kidney stones, ureteral/renal abnormalities as a child, prior pyelonephritis, endometriosis, chronic back pain Data collected from: patient Medical records reviewed: Primary care notes from July of 2023 are reviewed Differential considered: Kidney stone, hematologically seated pyelonephritis, UTI with a pyelonephritis, ectopic , endometriosis, musculoskeletal back pain, appendicitis Exam documented above, pertinent findings include: Exam is relatively benign. She has no midline thoracic or lumbar tenderness. No redness or warmth to the spine. No paraspinous muscle spasm. Tenderness with deep palpation of the right kidney without significant other abdominal tenderness Lab Test results independently reviewed as above. Pertinent findings: Urine test is negative Urinalysis shows red cells only. She states she is minimal withdrawal bleeding flow. Could be related to vaginal bleeding could also be hematuria from kidney stones CBC is unremarkable Chemistries including creatinin Imaging studies independently reviewed: CT KUB official read suggests no significant pathology. There is significant amount of stool loading throughout the entire colon Treatments: 1 L of fluid, Toradol Re-evaluations: Findings reviewed with the patient, she notes she did have a colonoscopy last year that was unremarkable, is not using recreational narcotics Discussion: 28-year-old woman with a history of prior kidney stones and congenital ureteral issues seemed to have resolved this point. Increasing bilateral back pain more right flank pain at this point. She does not have an acute abdomen. Labs are reassuring no evidence of infection, pelvic pathology, she has not , CT scan does not suggest kidney stone or hydronephrosis but does show significant stool loading. We talked about using enough MiraLax to completely clean out her colon just like she did before her colonoscopy a year ago. She is more than willing to give this a try. Questions are answered at this time there was no indication for additional imaging or hospitalization. She is safe for discharge Discharge Plan Departure Patient Disposition: Home Clinical Impression: Abdominal pain Qualifiers: Abdominal location: right lower quadrant Qualified Code(s): R10.31 - Right lower quadrant pain Constipation Qualifiers: Constipation type: unspecified constipation type Qualified Code(s): K59.00 - Constipation, unspecified Instructions: DI for Constipation Activity Restrictions/Additional Instructions: Thank you for coming in today Your blood work does not show signs of infection, electrolyte abnormalities or kidney problems You are not , you are not showing signs of a bladder or kidney infection The CT scan that we did of your abdomen does not suggest pyelonephritis, no abscesses or internal abnormalities. It does look like you have lots of stool loaded throughout your colon and I suspect this is contributing to the discomfort that you are experiencing. You noted that you had a colonoscopy about a year ago and had to drink all of the prep beforehand. I am going to suggest that you go home today and use enough MiraLax that you begin to have almost clear stool coming out. If you are still having pain or additional findings after you have cleared your colon, please feel free to return to the ER Prescriptions: No Action albuterol sulfate 90 mcg/actuation HFA aerosol inhaler 1 puff inhalation Q2-4H PRN (Reason: shortness of breath or wheezing) Qty: 1 0RF dextroamphetamine-amphetamine 20 mg capsule,extended release 24hr 1 cap PO DAILY Qty: 30 0RF Referrals: Miscellaneous,Doctor, MD [Primary Care Provider] - Stand Alone Forms: Patient Portal/API
[2024-09-21 09:45] LABS: Bacteria Urine None Seen; RBC Urine 10-30/HPF (0-5/HPF); Squamous Epithelial Cell Urine 0-1 /HPF (0-5/HPF); Urine Volume 10mL (spun); WBC Urine 0-1/HPF (0-5/HPF)
[2024-09-21 09:46] LABS: Culture Indicated Urine Cult Not Indicated
[2024-09-21] MEDS: KETOROLAC 30 MG/ML VIAL 15 MG IV (09:52)
[2024-09-21] MEDS: SODIUM CHLORIDE 0.9% 1,000 ML 1000 ML IV (09:53)
[2024-09-21 10:26] LABS: Add Manual Diff / Slide Review NO; Basophils Absolute Auto 0 /uL (0-100); Basophils Percent Auto 0.7 % (0-2); Eosinophils Absolute Auto 600 /uL (0-450); Hematocrit 36.1 % (36-46); Hemoglobin 11.9 g/dL (12.0-16.0); Lymphocytes Absolute Auto 1600 /uL (1100-4500); Lymphocytes Percent Auto 24.9 % (25-40); Mean Corpuscular HGB Conc 33.1 % (30-36); Mean Corpuscular Volume 84.9 fL (80-100); Monocytes Absolute Auto 500 /uL (0-900); Monocytes Percent Auto 7.2 % (3-14); Neutrophils Absolute Auto 3700 /uL (1500-7000); Neutrophils Percent Auto 58.2 % (50-75); Platelet Count 263 X10^3/uL (150-400); Red Blood Cell Count 4.26 X10^6/uL (4.0-5.2); Red Cell Distribution Width 13.5 % (11.6-14.8); White Blood Cell Count 6.4 X10^3/uL (4.5-11.0)
[2024-09-21 10:36] LABS: Alanine Aminotransferase 15 IU/L (<35); Albumin 4.2 g/dL (3.5-5.0); Albumin Globulin Ratio 1.7 (1.0-2.8); Alkaline Phosphatase 47 U/L (38-126); Aspartate Aminotransferase 21 IU/L (14-36); BUN Creatinine Ratio 19.1 (6-22); Bilirubin Total 0.3 mg/dL (0.2-1.3); Blood Urea Nitrogen 17 mg/dL (7-17); Calcium 9.2 mg/dL (8.4-10.2); Carbon Dioxide 24 mmol/L (22-32); Chloride 105 mmol/L (98-107); Estimated Glomerular Filt Rate > 60 mL/min (>60); Globulin 2.5 g/dL (1.7-4.1); Glucose 86 mg/dL (70-100); HEMOLYSIS < 15 (0-50); Potassium 4.1 mmol/L (3.4-5.1); Sodium 138 mmol/L (137-145); Total Protein 6.7 g/dL (6.3-8.2)
--- NOTE | 2024-09-21 11:13 | PC.NURSE ---
Pt reports low BP is normal for her - at this time
== END 2024-09-21 11:37 | disposition home or self-care (01) ==
PROVIDERS: Emergency Provider Emergency Medicine
DX: R10.31 Right lower quadrant pain (principal); K59.00 Constipation, unspecified; M54.50 Low back pain, unspecified
CPT/HCPCS: 36415; 74176; 80053; 81003; 81015; 81025; 85025; 96361; 96374; 99284; J1885

== ENCOUNTER 2025-11-08 19:35 | Emergency (ER) | payer OTHER, SELFPAY ==
[2025-11-08 19:39] VITALS: BP 121/57; PULSE 87; RESP 16; TEMP 36.7; O2SAT 100; BMI 26.6
--- NOTE | 2025-11-08 19:42 | DI.RAD.S_ITS ---
PROCEDURE: XR HAND LT MIN 3V INDICATIONS: Lac from glass TECHNIQUE: 3 views of the hand(s) acquired. COMPARISON: None. FINDINGS: Bones: Bandage material overlying the 5th digit. No definite radiodense foreign body seen in the soft tissue. Underlying osseous structures are normal. No suspicious bone lesions. Soft tissues: No suspicious soft tissue calcifications. IMPRESSION: No fractures or foreign body seen. Dictated by: Michelle Severino M.D. on 11/08/2025 at 21:07 Approved by: Michelle Severino M.D. on 11/08/2025 at 21:08
[2025-11-09] MEDS: LIDOCAINE 2% INJ MDV 20ML 10 ML INJ (00:06)
--- NOTE | 2025-11-09 00:25 | ED_ITS ---
HPI - Wound/Laceration General Chief Complaint: Wound/Laceration Stated Complaint: Lt hand pinky finger laceration Time Seen by Provider: 11/08/25 23:30 Source: patient Mode of arrival: Ambulatory History of Present Illness HPI narrative: 30-year-old female was washing dishes earlier today, glass bottle shattered, sustained laceration to her left hand pinky finger, able to move it. Unclear last date of last tetanus, might have been more than 5 years ago. No other injuries. Denies pain or foreign body sensation no lacerations to her other fingers, hand, wrist. No eye symptoms or face symptoms. Related Data Allergies Allergy/AdvReac Type Severity Reaction Status Date / Time No Known Drug Allergies Allergy Verified 11/08/25 19:38 Patient History Medical History ADD (attention deficit disorder) Anxiety (~2019) Asthma (~2000) Chronic urinary tract infection Depression (~2017) Elevated LFTs Family history of Shannan thyroiditis Fractures Headache (~2018) Hearing loss Insomnia Kidney stones Seasonal allergic rhinitis Seizures (~2009) Surgical History Anesthesia Disorder of kidney and ureter (~1994) Family History Mother Hypertension Shannan's disease Grandfather Alzheimer's disease Grandmother Skin cancer Grandfather Diabetes mellitus Social History Smoking Status: Former smoker Smoking Status: Former smoker tobacco type: cigarettes alcohol intake frequency: holidays/special occasions only Exam Narrative Exam Narrative: GENERAL: Well-developed patient, in mild distress. HEAD: Atraumatic. Normocephalic. EYES: Pupils equal round and reactive. Extraocular motions intact. No scleral icterus. No injection or drainage. ENT: Nose without bleeding, purulent drainage. Throat without erythema, tonsillar hypertrophy or exudate. Airway patent. NECK: Trachea midline. Non tender CARDIOVASCULAR: Regular rate and rhythm without murmurs, gallops, or rubs. RESPIRATORY: Clear to auscultation. Breath sounds equal bilaterally. No wheezes, rales, or rhonchi. GASTROINTESTINAL: Abdomen soft, non-tender, nondistended. EXTREMITIES: Curvilinear 1 cm laceration to the medial aspect of the left pinky finger mid phalanx, no visible tendon or joint or muscle or bone structures, no visible or palpable foreign body. No limited range of motion of the finger. No obvious injuries to the other adjacent fingers, nor to the palm or dorsal aspect of the hand, or wrist or forearm. BACK: Nontender without deformity or crepitance. No flank tenderness. NEURO: AOx3. Motor functions grossly nonfocal. SKIN: No rash or erythema of visible areas Initial Vital Signs Initial Vital Signs: Vital Signs Temperature 98.0 F 11/08/25 19:39 Pulse Rate 87 11/08/25 19:39 Respiratory Rate 16 11/08/25 19:39 Blood Pressure 121/57 L 11/08/25 19:39 Pulse Oximetry 100 11/08/25 19:39 Oxygen Delivery Method Room Air 11/08/25 19:39 Procedures Laceration Repair Laceration 1: Time of procedure: 00:33 Site: hand (Medial aspect left pinky finger mid phalanx) Side (If applicable): left Size (cm): 1.0 Description: linear Local Anesthetic: lidocaine 1% Amount of anesthesia used (mL): 3 Pre-repair: wound explored and irrigated extensively Skin layer closed with: nylon Skin layer suture size: 5-0 Number of sutures: 3 Technique: simple, interrupted Course Orders Ordered: Discontinued Medications Bacitracin (Bacitracin Oint 0.9 Gm Pckt) 1 applic TOP NOW ONE Stop: 11/09/25 00:23 Last Admin: 11/09/25 00:28 Dose: 1 applic Documented By: KESHIA Diphtheria/Tetanus/Acell Pertussis (Tet,Diph,Pertuss(Acell),Vac/Pf 0.5 Ml Syringe) 0.5 ml IM .ONCE ONE Stop: 11/09/25 00:23 Last Admin: 11/09/25 00:26 Dose: 0.5 ml Documented By: KESHIA Lidocaine HCl (Lidocaine 2% Inj Mdv 20ml) 10 ml INJ INTRA-OP ONE Stop: 11/09/25 00:00 Last Admin: 11/09/25 00:06 Dose: 10 ml Documented By: AB Vital Signs Vital signs: Vital Signs - 8 hr 11/09/25 00:56 Respiratory Rate 16 Blood Pressure 117/80 MDM - Wound/Laceration Imaging Data Extremity x-ray #1: Radiologist's Impression: [address] [id number] XRay Report Signed Patient: Jaki Moses MR#: [id number] : 1995 Acct:[id number] Age/Sex: 30 / F Date of Service: 11/08/25 Loc: ED Accession Number: [id number] Procedure: XR hand LT min 3V Ordering Provider: Benitez Pacheco MD PROCEDURE: XR HAND LT MIN 3V INDICATIONS: Lac from glass TECHNIQUE: 3 views of the hand(s) acquired. COMPARISON: None. FINDINGS: Bones: Bandage material overlying the 5th digit. No definite radiodense foreign body seen in the soft tissue. Underlying osseous structures are normal. No suspicious bone lesions. Soft tissues: No suspicious soft tissue calcifications. IMPRESSION: No fractures or foreign body seen. Dictated by: Michelle Severino M.D. on 11/08/2025 at 21:07 Approved by: Michelle Severino M.D. on 11/08/2025 at 21:08 [facility] Narrative Medical decision making narrative: 30-year-old female had laceration from broken glass, curvilinear 1-cm laceration to the medial aspect of the left pinky finger at mid phalanx level, no obvious foreign body. X-ray ordered from triage, no fracture or foreign body changes noted. Tdap given. Primary closure, see procedure note. Dressed with antibiotic ointment, fingersplint, bloody Coban wrap. Advised wound check with PCP in the next 2-3 days. Suture removal likely 7-10 days. Discharged home. Return precautions discussed. Discharge Plan Departure Patient Disposition: Home Clinical Impression: Finger laceration Activity Restrictions/Additional Instructions: Left pinky finger mid phalanx laceration curvilinear 1 cm without visible bone or foreign body or tendon structures. X-ray negative for any fracture or retained foreign body, per Radiology report. Unclear date of last tetanus, was updated here in the emergency department. Primary closure with 3 sutures. Dressing applied, Coban wrap to adjacent finger after finger splinting. Consider wound check with your regular doctor early this next week. Take Tylenol and or Motrin [id number] medication as needed for pain control. Suture removal 7-10 days, hopefully will not develop any signs or symptoms of infection. Return earlier to this/nearest emergency department for any change worsening symptoms or any concerns prior. Referrals: Miscellaneous,Doctor, MD [Primary Care Provider, Medical] Stand Alone Forms: Patient Portal/API
[2025-11-09] MEDS: TET,DIPH,PERTUSS(ACELL),VAC/PF 0.5 ML SYRINGE IM (00:26)
[2025-11-09] MEDS: BACITRACIN OINT 0.9 GM PCKT 1 APPLIC TOP (00:28)
[2025-11-09 00:56] VITALS: BP 117/80; RESP 16
== END 2025-11-09 00:56 | disposition home or self-care (01) ==
PROVIDERS: Emergency Provider Emergency Medicine
DX: S61.217A Laceration without foreign body of left little finger without damage to nail, initial encounter (principal); Z23 Encounter for immunization; Y28.0XXA Contact with sharp glass, undetermined intent, initial encounter
CPT/HCPCS: 12001; 73130; 96372; 99283; 90715